=== PATIENT | male | born 1960 | race Caucasian/White ===

== ENCOUNTER → 2019-04-16 | Outpatient (CLI) | payer OTHER ==
--- NOTE | 2019-04-16 14:15 | RADIOLOGY REPORT (SQ) ---
EXAM DESCRIPTION: CT ABD/PELVIS WITH IV ORAL COMPLETED DATE/TIME: 04/16/2019 8:11 am REASON FOR STUDY: ABD PAIN (R10.9) R10.9 UNSPECIFIED ABDOMINAL PAIN COMPARISON: 08/23/2011 TECHNIQUE: CT scan of the abdomen and pelvis performed using helical scanning technique with dynamic intravenous contrast injection. No oral contrast. Images reviewed with lung, soft tissue, and bone windows. Reconstructed coronal and sagittal MPR images reviewed. Delayed images for evaluation of the urinary system also acquired. All images stored on PACS. All CT scanners at this facility use dose modulation, iterative reconstruction, and/or weight based d osing when appropriate to reduce radiation dose to as low as reasonably achievable (ALARA). [facility]: Dose Right [facility]: CareDose [facility]: Dose Right [facility]: Teradose 4D [facility]: [employer] CONTRAST TYPE AND DOSE: contrast/concentration: Isovue 350.00 mg/ml; Total Contrast Delivered: 88.0 ml; Total Saline Delivered: 70.0 ml RENAL FUNCTION: Creatinine 0.9 RADIATION DOSE: CT Rad equipment meets quality standard of care and radiation dose reduction techniq ues were employed. CTDIvol: 5.3 - 6.1 mGy. DLP: 573 mGy-cm.. LIMITATIONS: None. FINDINGS: LOWER CHEST: No significant findings. No nodules or infiltrates. LIVER: There is decreased attenuation throughout the liver consistent with fatty infiltration. No fo jose lesions. SPLEEN: Normal size. No focal lesions. PANCREAS: No masses. No significant calcifications or inflammation. Mild prominence of the common d uct but the patient has had prior cholecystectomy. GALLBLADDER: Surgically absent. ADRENAL GLANDS: No significant masses or asymmetry. RIGHT KIDNEY AND URETER: No solid masses. No significant calcifications. No hydronephrosis or hyd roureter. LEFT KIDNEY AND URETER: No solid masses. No significant calcifications. No hydronephrosis or hydr oureter. AORTA AND VESSELS: No aneurysm. No dissection. Renal arteries, SMA, celiac without stenosis. RETROPERITONEUM: No retroperitoneal adenopathy, hemorrhage or masses. BOWEL AND PERITONEAL CAVITY: No masses or inflammatory changes. No free fluid or peritoneal masses. There is diffuse thickening of the gastric wall. This could be infectious or inflammatory. No surro unding inflammation however. The stomach is incompletely distended. APPENDIX: Not visualized. PELVIS: No mass. No free fluid. Normal bladder. ABDOMINAL WALL: No masses. No hernias. BONES: There is a burst type fracture of L1. There is approximately 80% loss of height. There is a prominent retropulsed fragment resulting in moderate to severe central stenosis. Neurosurgery consul tation is recommended. OTHER: No other significant finding. IMPRESSION: 1. Slight thickening of the gastric wall. The stomach is incompletely distended. Clin ical significance of this is uncertain. 2. Burst type fracture of the L1 vertebral body with significant retropulsion. This is new from 201 5 although age is indeterminate. This results in moderate to severe central stenosis. Further evalu ation is warranted. 3. Fatty infiltration of the liver. COMMENT: This report was called to RAUL GOODWIN MD at13:51 on 04/16/2019. Dr. Goodwin is current ly in a procedure. He will call when he is able. TECHNICAL DOCUMENTATION: JOB ID: [id number] Quality ID # [id number]: Final reports with documentation of one or more dose reduction techniques (e.g., Au tomated exposure control, adjustment of the mA and/or kV according to patient size, use of iterative reconstruction technique) 2010 [employer]- All Rights Reserved Reading location - IP/workstation name: [email or web address]
== END ==
LOC: RAD 07:33
PROVIDERS: ATTEND Surgery
DX: K76.0 Fatty (change of) liver, not elsewhere classified (principal); R10.9 Unspecified abdominal pain; S32.011A Stable burst fracture of first lumbar vertebra, initial encounter for closed fracture; X58.XXXA Exposure to other specified factors, initial encounter; M48.061 Spinal stenosis, lumbar region without neurogenic claudication
CPT/HCPCS: 74177; 82565

== ENCOUNTER 2019-04-28 09:28 | Day surgery (SDC) | payer OTHER ==
[2019-04-28] MEDS ORDERED: DIPHENHYDRAMINE HCL 50 MG/ML VIAL ONE (09:45)
[2019-04-28] MEDS ORDERED: ONDANSETRON HCL INJ/PF 4 MG/2 ML SDV ONE (09:45)
[2019-04-28] MEDS ORDERED: NALOXONE HCL INJ/PF 0.4 MG/1 ML SDV ONE (09:46)
[2019-04-28] MEDS ORDERED: GLUCAGON,HUMAN RECOMB 1 MG INJ ONE (09:46)
[2019-04-28] MEDS ORDERED: FLUMAZENIL INJ 0.5 MG/5 ML VIAL ONE (09:46)
[2019-04-28] MEDS ORDERED: EPINEPHRINE INJ 1 MG/10 ML DISP.SYRIN ONE (09:46)
[2019-04-28] MEDS: FENTANYL CITRATE INJ/PF 100 MCG/2 ML AMPUL ONE ×3 (10:00→10:08)
[2019-04-28] MEDS: MIDAZOLAM 2 MG/2 ML INJ ONE ×3 (10:00→10:06)
[2019-04-28] MEDS ORDERED: SIMETHICONE 40 MG/0.6 ML DROPS 30ML ONE (10:09)
--- NOTE | 2019-04-28 10:18 | Operative Report ---
Nonrecallable Operative Report DATE OF SURGERY: 04/28/19 PREOPERATIVE DIAGNOSIS: Right-sided abdominal pain POSTOPERATIVE DIAGNOSIS: Moderate to severe duodenitis OPERATION: Esophagogastroduodenoscopy SURGEON: RAUL GOODWIN ANESTHESIA: Moderate Sedation TISSUE REMOVED OR ALTERED: None COMPLICATIONS: None ESTIMATED BLOOD LOSS: 0 INTRAOPERATIVE FINDINGS: Moderate to severe duodenitis PROCEDURE: Patient was brought to the endoscopy suite awake alert stable condition placed in a right lateral decubitus position After appropriate timeout site verification patient was given sedation with IV Versed and fentanyl. The Olympus gastroscope was then passed into the posterior pharynx and easily passed into the esophagus we traversed the esophagus into the stomach stomach had no evidence of mucosal abnormalities or ulcers there was some mild distal gastritis as as we passed the pylorus into the duodenum multiple areas of inflammation and hyperemia consistent with duodenitis which bled easily on contact with the scope The duodenal bulb was visualized there was no evidence of ulcers prepyloric area was also visualized no evidence of ulcers As the scope was withdrawn we retroflexed and identified a moderate sized hiatal hernia. As the scope was then withdrawn through the lower esophageal sphincter the distal esophagus was visualized and there is no sick significant esophagitis the scope was then fully withdrawn. Impression moderate to severe duodenitis No evidence of ulcerations at this time. Patient awakened in the endoscopy suite tolerated the procedure well.
--- NOTE | 2019-04-28 10:22 | Discharge Summary ---
Discharge Summary (SDC) - Discharge Final Diagnosis: Duodenitis Date of Surgery: 04/28/19 Condition: Good Referrals: KAILYN CAMPBELL PA-C [Primary Care Provider] - Discharge Diet: Regular Discharge Activity: Activity As Tolerated, No Lifting Over 10 Pounds Report the Following to Your Physician Immediately: Increase in Pain - pt needs a f/u in 3-4 wks.
[2019-04-28 11:07] VITALS: BP 137/79
== END 2019-04-28 11:26 | disposition home or self-care (01) ==
LOC: END 09:28
PROVIDERS: ATTEND Surgery
DX: K29.80 Duodenitis without bleeding (principal); Z09 Encounter for follow-up examination after completed treatment for conditions other than malignant neoplasm; Z87.11 Personal history of peptic ulcer disease; I10 Essential (primary) hypertension; Z79.899 Other long term (current) drug therapy; Z88.0 Allergy status to penicillin
CPT/HCPCS: 43235; J2250; J1200; J3010; J0171; J1610; J2310; J2405; J3490

== ENCOUNTER 2019-10-13 11:13 | Emergency (ER) | payer OTHER ==
[2019-10-13] MEDS ORDERED: CEFEPIME 1 GM/D5W RTU 1 GM/50 ML RTUPB IV SCH (12:00)
--- NOTE | 2019-10-13 12:05 | ER Document Report ---
ED General - General Chief Complaint: Other Stated Complaint: WOUND Time Seen by Provider: 10/13/19 11:30 Primary Care Provider: RANDY,TEODORA [Primary Care Provider] - Follow up as needed Notes: HPI: Patient is a 59-year-old male with past medical history including lumbar fusion around August 30 at [facility]. He supposedly had an infection requiring repeat surgery October 01. He presents today secondary to "removing accidentally" his wound VAC according to EMS. Patient denies any pain, nausea, vomiting, or fevers. Patient does have a PICC line with antibiotics provided daily by home health. Patient is very kind and does not know the year and the president. He does know where he is located. However he is confused about certain details believing that he got his surgery in February. I was able with his consent to call his . His states that he was discharged on , 5 days ago after his most recent surgery. She states that he is taking cefepime and missed his 9 AM dose. She states that he was been mentating and acting normally until this morning when he was being confused and agitated. He was stating expletives and then punched the wall with his left hand causing his wound VAC to dehisce from his back. Patient does have Percocet, baclofen, and Dilaudid at home. Patient has been taking his baclofen but denies taking his Percocet and Dilaudid. The patient does admit to drinking 2 alcoholic beverages this morning. ROS: See HPI All other review of systems reviewed and otherwise negative Reviewed vital signs and nursing note as charted by RN. PHYSICAL EXAM: CONSTITUTIONAL: Alert and oriented to person place and time. However the patient is confused about certain details HEAD: Normocephalic; atraumatic EYES: PERRL; sclerae non-icteric; no nystagmus noted ENT: Normal nose; no rhinorrhea; moist mucous membranes; pharynx without lesions noted NECK: Supple without meningismus; non-tender; no cervical lymphadenopathy, no masses CARD: Regular rate and rhythm; no murmurs; symmetric distal pulses RESP: Normal chest excursion without splinting or tachypnea; breath sounds clear and equal bilaterally; no wheezes, no rhonchi, no rales ABD/GI: Normal bowel sounds; non-distended; soft, non-tender; no palpable organomegaly or masses BACK: Large open wound consistent with previous surgery with no obvious surrounding erythema or induration EXT: Normal ROM in all joints; small abrasion to the knuckle of his left hand with no obvious tenderness or swelling to the wrist, hand or digits SKIN: See above NEURO: CN 2-12 intact; 5/5 bilateral upper and lower extremity strength with sensation intact to light touch TRAVEL OUTSIDE OF THE [place] IN LAST 30 DAYS: No - Related Data Allergies/Adverse Reactions: Penicillins Allergy (Severe, Verified 10/13/19 11:50) Hives, throat swells Past Medical History - Social History Smoking Status: Unknown if Ever Smoked Family History: Reviewed & Not Pertinent - Past Medical History Cardiac Medical History: Reports: Hx Hypertension Denies: Hx Coronary Artery Disease, Hx Heart Attack Pulmonary Medical History: Denies: Hx Asthma, Hx Bronchitis, Hx COPD, Hx Pneumonia Neurological Medical History: Denies: Hx Cerebrovascular Accident, Hx Seizures GI Medical History: Reports: Hx Gastroesophageal Reflux Disease, Hx Ulcer, Hx Colonoscopy, Hx Endoscopy Musculoskeletal Medical History: Denies Hx Arthritis Past Surgical History: Reports: Hx Cholecystectomy - Open after failed laparo scopic attempt.. Denies: Hx Pacemaker - Immunizations Hx Diphtheria, Pertussis, Tetanus Vaccination: Yes - 2010 Physical Exam - Vital signs Vitals: Temp 98.6 F 10/13/19 11:50 Course - Re-evaluation Re-evalutation: 10/13/19 12:04 Given the history and physical I will obtain basic labs, provide a dose of the patient's cefepime, consult the patient's orthopedic surgeon at [facility] and assess her blood alcohol level and electrolytes. Patient has no headache, chest pain, or focal neurological deficits currently. I have called and spoken to Dr. Chaney the neurosurgeon at [facility]. I explained the history and physical. He states that he does not need to have the patient transferred and a wound VAC does not need to be placed at this time. He states that he would just like us to place a sterile dressing over top of the wound and he will have the adolescent coordinator come out to the patient's house tomorrow. He did state that the patient is supposed to be taking cefepime 1 g which I did provide here. 10/13/19 13:11 Labs as recorded. Blood alcohol level as recorded. Patient understands the importance of not drinking any alcoholic beverages and taking the medications as directed. Patient is currently now oriented to month and date. There is no confusion on repeat questioning. Patient is calm and understanding and he realizes that he needs to stay away from alcohol. I have called and spoken to Corby his at [phone]. Patient's hemoglobin as recorded. Patient has no rectal bleeding. There is no bleeding from the wound site. Patient has shubham vated normal platelets with a normal creatinine. Patient was just discharged for surgery. I do not believe an acute hemorrhage is in the differential at this time. Patient appears to have excellent follow-up and I have explained strict return precautions both the patient and the . 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 The neurosurgeon states that the wound care center hospice/home health aide will come out to the house tomorrow as scheduled in place the wound VAC. Please make sure that you do not mix alcohol with your medications and take the medications only as prescribed. Please follow-up with the neurosurgeon for reevaluation as discussed. [facility]errals: [facility] [Primary [facility] Provider] - Follow up as needed
[2019-10-13 12:27] LABS: ABSOLUTE BASOPHILS # (AUTO) 0.1 10^3/uL (0.0-0.2); ABSOLUTE EOSINOPHILS # (AUTO) 0.2 10^3/uL (0.0-0.6); ABSOLUTE LYMPHOCYTES (AUTO) 1.8 10^3/uL (0.5-4.7); ABSOLUTE NEUT (AUTO) 5.2 10^3/uL (1.7-8.2); BASOPHILS % (AUTO) 0.9 % (0-2); EOSINOPHILS % (AUTO) 2.6 % (0-6); HEMATOCRIT 25.8 % (37.9-51.0); HEMOGLOBIN 8.7 g/dL (13.5-17.0); LYMPHOCYTES % (AUTO) 22.2 % (13-45); MEAN CORPUSCULAR HEMOGLOBIN 27.9 pg (27.0-33.4); MEAN CORPUSCULAR HGB CONC 33.6 g/dL (32.0-36.0); MEAN CORPUSCULAR VOLUME 83 fl (80-97); MONOCYTES % (AUTO) 11.8 % (3-13); PLATELET COUNT 469 10^3/uL (150-450); RED CELL DISTRIBUTION WIDTH 16.9 % (11.5-14.0); SEGMENTED NEUTROPHILS % (AUTO) 62.5 % (42-78); TOTAL CELLS COUNTED % (AUTO) 100 %
[2019-10-13 12:40] LABS: ANION GAP 8 (5-19); BLOOD UREA NITROGEN 12 mg/dL (7-20); CALCIUM 9.6 mg/dL (8.4-10.2); CARBON DIOXIDE 25 mmol/L (22-30); CHLORIDE 103 mmol/L (98-107); GLUCOSE 110 mg/dL (75-110); POTASSIUM 4.3 mmol/L (3.6-5.0)
[2019-10-13 12:44] LABS: ALCOHOL < 10 mg/dL (NONE DETECTED)
[2019-10-13 12:59] LABS: WHITE BLOOD COUNT 8.3 10^3/uL (4.0-10.5)
[2019-10-13 14:25] VITALS: BP 144/80
[2019-10-13] MEDS ORDERED: NORMAL SALINE 10 ML SDV (AFTER EACH USE) IV PRN (15:00)
[2019-10-13] MEDS ORDERED: NORMAL SALINE 10 ML SDV (SCHEDULED) IV SCH (22:00)
== END 2019-10-13 14:39 | disposition home or self-care (01) ==
LOC: ER 11:13
DX: Z91.14 Patient's other noncompliance with medication regimen (principal); R41.0 Disorientation, unspecified; F10.10 Alcohol abuse, uncomplicated; I10 Essential (primary) hypertension; Z79.899 Other long term (current) drug therapy; Z98.890 Other specified postprocedural states; Z88.0 Allergy status to penicillin
CPT/HCPCS: 99283; 96365; 36415; 87040; 80307; 85025; 80048; J0692